=== PATIENT | female | born 1990 | race Caucasian/White ===

== ENCOUNTER 2018-08-04 10:55 | Emergency (ER) | payer OTHER ==
[2018-08-04 11:03] VITALS: BP 125/65; PULSE 78; TEMP 98.1; BMI 22.1
--- NOTE | 2018-08-04 11:20 | PDOC ---
History of Present Illness - General Chief Complaint: Pain, Acute Stated Complaint: ABD PAIN Time Seen by Provider: 08/04/18 11:09 History Source: Patient Exam Limitations: Clinical Condition - History of Present Illness Initial Comments: 08/04/18 12:05 Patient with history of gaseously with 3 years ago and chronic constipation present with complaint of epigastric and left upper quadrant in since this morning with nausea. Patient reported last bowel movement was 3 days ago. Patient denies fever, chills or vomiting. Patient reported epigastric gas pain with food. Patient denies any other symptoms 08/04/18 12:13 Timing/Duration: 4-6 hours Past History - Past Medical History Allergies/Adverse Reactions: Allergies Allergy/AdvReac Type Severity Reaction Status Date / Time No Known Allergies Allergy Verified 08/04/18 11:00 Home Medications: Ambulatory Orders Cholecalciferol (Vitamin D3) [Vitamin D3 -] 0 unit PO DAILY 08/04/18 Famotidine [Pepcid] 20 mg PO DAILY #10 tablet 08/04/18 Mag Hydrox/Aluminum Hyd/Simeth [Maalox Advanced Suspension] 30 ml PO Q8H PRN # 300 ml 08/04/18 Multivitamin [One Daily] 1 each PO DAILY 08/04/18 Polyethylene Glycol 3350 [Miralax (For Bowel Prep) -] 17 gm PO DAILY #1 bottle 08/04/18 Sulfamethoxazole/Trimethoprim [Bactrim Ds -] 1 tab PO BID 5 Days #10 tablet 05/13 COPD: No - Immunization History Immunization Up to Date: Yes - Suicide/Smoking/Psychosocial Hx Smoking History: Never smoked Information on smoking cessation initiated: No Hx Alcohol Use: No Drug/Substance Use Hx: No Review of Systems - Review of Systems Able to Perform ROS?: Yes Is the patient limited Turkmen proficient: No Constitutional: No: Fever, Malaise, Weakness HEENTM: No: Symptoms Reported Respiratory: No: Symptoms reported Cardiac (ROS): No: Symptoms Reported ABD/GI: Yes: See HPI, Constipated, Nausea, Abdominal cramping (eipgastric/LUQ pain). No: Abdominal Distended, Abd. Pain w/ defecation, Diarrhea, Difficulty Swallowing, Rectal Bleeding, Vomiting, Indigestion : No: Burning, Dysuria, Frequency, Urgency Neurological: No: Weakness, Dizziness All Other Systems: Reviewed and Negative *Physical Exam - Vital Signs Last Vital Signs Temp Pulse Resp BP Pulse Ox 98.1 F 78 16 125/65 100 08/04/18 11:00 08/04/18 11:00 08/04/18 11:00 08/04/18 11:00 08/04/18 11:00 - Physical Exam Comments: 08/04/18 12:07 `GENERAL: Well developed, well nourished. Awake and alert. mild acute distress. HEENT: Normocephalic, atraumatic. PERRLA, EOMI. No conjunctival pallor. Sclera are non-icteric. NECK: Supple. Full ROM. CARDIOVASCULAR: Regular rate and rhythm. No murmurs, rubs, or gallops. Distal pulses are 2+ and symmetric. PULMONARY: No evidence of respiratory distress. Lungs clear to auscultation bilaterally. No wheezing, rales or rhonchi. ABDOMINAL: mild tenderness to epigastric and LUQ . Soft. Non-distended. No rebound or guarding. No organomegaly. Normoactive bowel sounds. SKIN: Warm and dry. no cyanosis. Normal capillary refill. No rashes. NEUROLOGICAL: Alert, awake, appropriate. Gait is normal without ataxia. PSYCHIATRIC: Cooperative. Good eye contact. Appropriate mood General Appearance: Yes: Nourished, Appropriately Dressed, Mild Distress Moderate Sedation - Procedure Monitoring Vital Signs: Procedure Monitoring Vital Signs Temperature 98.1 F 08/04/18 11:00 Pulse Rate 78 08/04/18 11:00 Respiratory Rate 16 08/04/18 11:00 Blood Pressure 125/65 08/04/18 11:00 O2 Sat by Pulse Oximetry (%) 100 08/04/18 11:00 ED Treatment Course - LABORATORY CBC & Chemistry Diagram: 08/04/18 11:42 08/04/18 11:42 Medical Decision Making - Medical Decision Making 08/04/18 12:10 Patient with history of gastric sleeve 3 years ago and chronic constipation present with complaint of epigastric and left upper quadrant pain since this morning with nausea. Patient reported burning sensation in epigastric region with food. Patient denies vomiting or diarrhea. Patient reported last bowel movement 3 days ago. Exam significant for mild tenderness to epigastric and left upper quadrant of abdomen without guarding or rebound. Bedside ultrasound done with Dr. Washington shows no acute cholecystitis or gallstone or pericolic fluid. CBC, CMP labs ordered. UA urine culture labs ordered. Urine test ordered. IV fluid and normal saline bolus of 500 mg ordered. Pepcid 20 mg IV, Zofran 4 mg sublingual and Maalox ordered. Will consider abdominal CAT scan after lab results. 08/04/18 12:57 CBC and chemistry lab normal. Urine hCG negative. UA shows no WBC and only trace leukocyte. Abdominal CAT scan pending. 08/04/18 14:12 CBC and chemistry lab unremarkable. Urine test negative. UA shows trace leukocyte otherwise normal with WBCs. Abdominal CAT scan shows moderate fecal retention otherwise unremarkable. Patient reported improved pain with Pepcid and fluid. Patient is stable for discharge on Bactrim for UTI and Pepcid , Maalox and MiraLAX for constipation with GI follow-up. 08/04/18 14:28 08/04/18 14:28 *DC/Admit/Observation/Transfer Diagnosis at time of Disposition: Abdominal pain Qualifiers: Abdominal location: left lower quadrant Qualified Code(s): R10.32 - Left lower quadrant pain Constipation Qualifiers: Constipation type: chronic idiopathic constipation Qualified Code(s): K59.04 - Chronic idiopathic constipation UTI (urinary tract infection) Qualifiers: Urinary tract infection type: acute cystitis Hematuria presence: without hematuria Qualified Code(s): N30.00 - Acute cystitis without hematuria - Discharge Dispostion Disposition: HOME Condition at time of disposition: Stable Decision to Admit order: No - Prescriptions Prescriptions: Famotidine [Pepcid] 20 mg PO DAILY #10 tablet Mag Hydrox/Aluminum Hyd/Simeth [Maalox Advanced Suspension] 30 ml PO Q8H PRN # 300 ml PRN Reason: abdominal discomfort Polyethylene Glycol 3350 [Miralax (For Bowel Prep) -] 17 gm PO DAILY #1 bottle Sulfamethoxazole/Trimethoprim [Bactrim Ds -] 1 tab PO BID 5 Days #10 tablet - Referrals Referrals: Armando Grey MD [Primary Care Provider] - Tyson Hines MD [Staff Physician] - - Patient Instructions Printed Discharge Instructions: Constipation, Increased Dietary Fiber May Improve Constipation Conditions With Pelvic Christopher Additional Instructions: Take medication as prescribed. Increase fluid intake. Follow-up referred GI doctor for follow-up. - Post Discharge Activity
[2018-08-04] MEDS ORDERED: FAMOTIDINE 20 MG/50 ML IVPB 20 MG/50 ML MG IVPB ONE ×2 (11:28→11:37)
[2018-08-04] MEDS ORDERED: MAG HYDROX/AL HYDROX/SIMETH 30 ML UNIT-DOSE CUP PO ONE (11:28)
[2018-08-04] MEDS ORDERED: ONDANSETRON *ODT* 4 MG TABLET SL ONE (11:28)
[2018-08-04] MEDS ORDERED: MAG HYDROX/AL HYDROX/SIMETH 30 ML UNIT-DOSE CUP ONE (11:36)
[2018-08-04] MEDS ORDERED: ONDANSETRON *ODT* 4 MG TABLET ONE ×2 (11:36→11:40)
[2018-08-04 11:55] LABS: BASO % 0.4 % (0-2.0); EOS % 0.3 % (0-4.5); HEMATOCRIT 37.9 % (32.4-45.2); HEMOGLOBIN 13.1 GM/dL (10.7-15.3); LYMPH % 19.2 % (8-40); MCH 30.4 pg (25.7-33.7); MCHC 34.7 g/dl (32.0-36.0); MEAN CELL VOLUME 87.8 fl (80-96); MEAN PLT VOLUME 8.4 fl (7.5-11.1); MONO % 5.6 % (3.8-10.2); NEUT % 74.5 % (42.8-82.8); PLATELET COUNT 228 K/MM3 (134-434); RBC 4.32 M/mm3 (3.60-5.2); RDW 14.3 % (11.6-15.6); WHITE BLOOD COUNT 7.2 K/mm3 (4.0-10.0)
[2018-08-04] MEDS ORDERED: SODIUM CHLORIDE 500 ML IV STA (12:04)
[2018-08-04 12:05] LABS: URINE APPEARANCE CLEAR; URINE BILIRUBIN NEGATIVE (<2.0 mg/dL); URINE COLOR YELLOW; URINE GLUCOSE (UA) NEGATIVE (NEGATIVE); URINE KETONE NEGATIVE (NEGATIVE); URINE LEUK ESTERASE TRACE (NEGATIVE); URINE NITRITE NEGATIVE (NEGATIVE); URINE PROTEIN NEGATIVE (NEGATIVE); URINE UROBILINOGEN NEGATIVE mg/dL (0.2-1.0)
[2018-08-04 12:07] LABS: HCG,QUALITATIVE URINE Negative
[2018-08-04 12:08] LABS: EPI CELLS RARE /HPF (FEW); URINE BACTERIA FEW /hpf (NONE SEEN); URINE MUCUS FEW
[2018-08-04 12:25] LABS: ALBUMIN 3.7 g/dl (3.4-5.0); ALK PHOS 51 U/L (45-117); ANION GAP 7 MMOL/L (8-16); BILIRUBIN,TOTAL 0.6 mg/dL (0.2-1); BLOOD UREA NITROGEN 11 mg/dL (7-18); CALCIUM 8.6 mg/dL (8.5-10.1); CHLORIDE 108 mmol/L (98-107); CO2 25 mmol/L (21-32); CREATININE 0.7 mg/dL (0.55-1.3); GLUCOSE,RANDOM 85 mg/dL (74-106); POTASSIUM 3.9 mmol/L (3.5-5.1); SGOT/AST 11 U/L (15-37); SGPT/ALT 14 U/L (13-61); SODIUM 140 mmol/L (136-145); TOT PROT 7.4 g/dl (6.4-8.2)
--- NOTE | 2018-08-04 12:43 | PDOC ---
*Physical Exam - Vital Signs Last Vital Signs Temp Pulse Resp BP Pulse Ox 98.1 F 78 16 125/65 100 08/04/18 11:00 08/04/18 11:00 08/04/18 11:00 08/04/18 11:00 08/04/18 11:00 - Physical Exam General Appearance: Yes: Nourished HEENT: positive: KATHRYN Neck: positive: Trachea midline Respiratory/Chest: positive: Lungs Clear, Normal Breath Sounds Cardiovascular: positive: Regular Rhythm, Regular Rate, S1, S2 Gastrointestinal/Abdominal: positive: Normal Bowel Sounds, Tender, Other (ttp left mid quad, ruq). negative: Rebound, Tenderness Extremity: positive: Normal Capillary Refill Integumentary: positive: Normal Color, Dry, Warm Neurologic: positive: Fully Oriented, Alert, Normal Mood/Affect ED Treatment Course - LABORATORY CBC & Chemistry Diagram: 08/04/18 11:42 08/04/18 11:42 - ADDITIONAL ORDERS Additional order review: Laboratory Results 08/04/18 08/04/18 11:46 11:42 Sodium 140 Potassium 3.9 Chloride 108 H Carbon Dioxide 25 Anion Gap 7 L BUN 11 Creatinine 0.7 Creat Clearance w eGFR > 60 Random Glucose 85 Calcium 8.6 Total Bilirubin 0.6 AST 11 L ALT 14 Alkaline Phosphatase 51 Total Protein 7.4 Albumin 3.7 Urine Color Yellow Urine Appearance Clear Urine pH 5.0 Ur Specific Gaylord 1.025 Urine Protein Negative Urine Glucose (UA) Negative Urine Ketones Negative Urine Blood Negative Urine Nitrite Negative Urine Bilirubin Negative Urine Urobilinogen Negative Ur Leukocyte Esterase Trace Urine WBC (Auto) 29 Urine RBC (Auto) 1 Ur Epithelial Cells Rare Urine Bacteria Few Urine Mucus Few Urine HCG, Qual Negative 08/04/18 11:42 RBC 4.32 MCV 87.8 MCHC 34.7 RDW 14.3 MPV 8.4 Neutrophils % 74.5 Lymphocytes % 19.2 Monocytes % 5.6 Eosinophils % 0.3 Basophils % 0.4 - Medications Given in the ED: ED Medications Discontinued Medications Generic Name Dose Route Start Last Admin Trade Name Freq PRN Reason Stop Dose Admin Al Hydroxide/Mg Hydroxide 30 ml 08/04/18 11:28 08/04/18 11:50 Mylanta Oral Suspension - PO 08/04/18 11:29 30 ml ONCE ONE Administration Famotidine/Sodium Chloride 20 mg in 50 mls @ 100 mls/hr 08/04/18 11:28 11:50 Pepcid 20 Mg Premixed Ivpb - IVPB 08/04/18 11:57 100 mls/hr ONCE ONE Administration Ondansetron HCl 4 mg 08/04/18 11:28 08/04/18 11:50 Zofran Odt - SL 08/04/18 11:29 4 mg ONCE ONE Administration Medical Decision Making - Medical Decision Making 08/04/18 12:38 28 yo F with h/o gastric bypass 3 yrs ago,lost 100 lbs here with c/o nausea, no vomiting, and abd pain. pain contant feels like acid. no vomiting. no f/c no urinary complaints. no h/o complications following surgery. on exam pt with mid upper left quad and right upper quad ttp. neg tadeo's. no rebound no guarding. no cva tendernsss. differential cholecystitis, cholelithiasis, sbo, gastrits pancreatitis, uti, other electrolyte abnoramlity viral GE. plan bedside us ruq, possible ct a/p ua labs ucg antiemetics antacids, and ivf. focused ED ultrasound RUQ performed, indication : RUQ pain, gallbladder scanned in two planes. negative tadeo's signs, no rebound no guarding. anterior gallbladder wall no thickenign no wall edema, no pericholecystic fluid. CBD <4mm impression: normal gallbladder. pt seen and examined in conjunction with VIRGILIO Sykes, agree with assessment and plan
== END 2018-08-04 14:22 | disposition home or self-care (01) ==
LOC: JER 10:55
PROC: 3E0337Z Introduction of Electrolytic and Water Balance Substance into Peripheral Vein, Percutaneous Approach (ICD-10-PCS; principal; 2018-08-04)
PROC: 3E033GC Introduction of Other Therapeutic Substance into Peripheral Vein, Percutaneous Approach (ICD-10-PCS; 2018-08-04)
PROC: BF42ZZZ Ultrasonography of Gallbladder (ICD-10-PCS; 2018-08-04)
DX: K59.04 Chronic idiopathic constipation (principal); R10.12 Left upper quadrant pain; R10.32 Left lower quadrant pain
CPT/HCPCS: 36415; 74177-TC; 80053; 81003; 81015; 84703; 85025; 87086; 87186; 99282-25; Q0162

== ENCOUNTER 2020-06-09 20:28 | Emergency (ER) | payer OTHER ==
[2020-06-09 20:33] VITALS: BP 115/75; PULSE 98; TEMP 98.1; BMI 23.3
[2020-06-09] MEDS ORDERED: DIPHTH,PERTUSS(ACELL),TET 0.5 ML DISP.SYRIN IM ONE ×2 (21:04→21:31)
== END 2020-06-09 22:57 | disposition home or self-care (01) ==
LOC: JERFT 20:28 → JER 20:28
PROC: 0HQ0XZZ Repair Scalp Skin, External Approach (ICD-10-PCS; principal; 2020-06-09)
PROC: 3E0234Z Introduction of Serum, Toxoid and Vaccine into Muscle, Percutaneous Approach (ICD-10-PCS; 2020-06-09)
DX: S01.01XA Laceration without foreign body of scalp, initial encounter (principal); W19.XXXA Unspecified fall, initial encounter
CPT/HCPCS: 70450-TC; 72125-TC; 90715; 99284-25